=== PATIENT | female | born 1930 | race Caucasian/White ===

== ENCOUNTER 2018-08-08 08:41 | Emergency (ER) | payer MEDICARE, OTHER ==
[~2018-08-08] VITALS: Ht 152.4 cm; Wt 60.3 kg
[2018-08-08 09:42] VITALS: BP 140/72
[2018-08-08 10:03] LABS: Basophils # (auto) 0 uL; Basophils % (auto) 0.9 % (0.0-2.0); Eosinophils # (auto) 0.1 uL; Eosinophils % (auto) 2.1 % (0.0-7.0); Hemoglobin 13.5 g/dL (12.2-16.2); Lymphocytes # (auto) 1.4 uL; Lymphocytes % (auto) 27.5 % (10.0-50.0); Mean Corpuscular Hemoglobin 30.9 pg (28.0-32.0); Mean Corpuscular Hgb Conc. 33.9 g/dL (32.0-36.0); Mean Corpuscular Volume 91.1 fL (80.0-100.0); Monocytes # (auto) 0.4 uL; Monocytes % (auto) 7.4 % (0.0-12.0); Neutrophils # (auto) 3.3 uL; Neutrophils % (auto) 62.1 % (37.0-80.0); Platelet Count (auto) 253 10^3/uL (140-450); Red Blood Cells 4.39 10^6/uL (4.0-5.20); Red Cell Distribution Width 14.4 % (11.8-14.3); White Blood Cell 5.3 10^3/uL (4.4-10.8)
[2018-08-08 10:25] LABS: Albumin 4.1 g/dL (3.4-5.0); BUN/Creatinine Ratio 17.4; Bilirubin, Total 0.5 mg/dL (0.2-1.0); Calcium 8.9 mg/dL (8.5-10.1); Potassium 4.1 mmol/L (3.5-5.1); Total Protein 7.6 g/dL (6.4-8.2)
[2018-08-08] MEDS ORDERED: DOXYCYCLINE 100 MG TAB/CAP PO ONE (10:30)
== END 2018-08-08 10:53 | disposition home or self-care (01) ==
LOC: ER 08:45
DX: L03.116 Cellulitis of left lower limb (principal); M19.90 Unspecified osteoarthritis, unspecified site; Z88.8 Allergy status to other drugs, medicaments and biological substances
CPT/HCPCS: 36415; 80053; 85025